=== PATIENT | female | born 1955 | race Caucasian/White ===

== ENCOUNTER 2019-02-25 18:01 | Observation (INO) | payer MEDICARE, OTHER ==
[~2019-02-25] VITALS: Ht 162.6 cm; Wt 73.5 kg
[~2019-02-25 18:01] MED LIST: ATENOLOL 100MG100 MG PO; BENAZEPRIL HCL20 MG PO; FENOFIBRATE160 MG PO; OMEPRAZOLE20 M2 PO; VICODIN ES 7.51 EACH PO; XANAX 0.25 MG0.25 MG PO
[2019-02-25 18:04] VITALS: BP 124/72
[2019-02-25 18:44] LABS: ABSOLUTE BASOPHILS 0.1 thou/uL (0.0-0.2); ABSOLUTE EOSINOPHILS 0.1 thou/uL (0.0-0.7); ABSOLUTE LYMPHOCYTES 2.5 thou/uL (0.8-5.3); ABSOLUTE MONOCYTES 0.4 thou/uL (0.0-1.2); ABSOLUTE NEUTROPHILS 3.7 thou/uL (1.6-8.1); BASOPHILS 0.9 %; EOSINOPHILS 0.9 %; HEMATOCRIT 41.8 % (37.0-47.0); HEMOGLOBIN 14.2 gm/dL (12.0-15.0); LYMPHOCYTES 37.1 %; MCH 31.9 pg (26.0-34.0); MCHC 33.9 g/dL (28.0-37.0); MCV 93.9 fL (80.0-100.0); MONOCYTES 5.4 %; MPV 10.2 fl. (7.2-11.1); NUCLEATED RBCS 0 /100WBC; PLATELET COUNT* 189 thou/uL (150-400); POLYS 55.7 %; RBC 4.45 mil/uL (4.20-5.00); RDW-CV 12.6 % (10.5-14.5); WBC 6.7 thou/uL (4.0-11.0)
[2019-02-25 18:50] LABS: URINE BILIRUBIN NEGATIVE (Negative); URINE BLOOD NEGATIVE (Negative); URINE CLARITY CLEAR; URINE COLOR YELLOW; URINE GLUCOSE-RANDOM 3+ (Negative); URINE KETONES NEGATIVE (Negative); URINE LEUKOCYTES-REFLEX NEGATIVE (Negative); URINE NITRITE-REFLEX NEGATIVE (Negative); URINE PROTEIN TRACE (Negative); URINE SPECIFIC GRAVITY <= 1.005 (1.005-1.030); URINE UROBILINOGEN 0.2 E.U./dl (0.2-1.0)
[2019-02-25 18:52] LABS: ANION GAP 11 mmol/L (7-16); BUN 11 mg/dL (7-18); CALCIUM 8.9 mg/dL (8.5-10.1); CHLORIDE 100 mmol/L (98-107); CO2 25 mmol/L (21-32); CREATININE 1.1 mg/dL (0.6-1.3); GLUCOSE 435 mg/dL (70-99); POTASSIUM 3.5 mmol/L (3.5-5.1); SODIUM 136 mmol/L (136-145)
[2019-02-25 19:01] LABS: ALBUMIN 3.9 g/dL (3.4-5.0); ALKALINE PHOSPHATASE 84 U/L (46-116); SGOT 19 U/L (15-37); SGPT 40 U/L (30-65); TOTAL BILIRUBIN 0.4 mg/dL (<0.1-1.0); TROPONIN-I LEVEL <0.06 ng/mL (<0.06)
[2019-02-25 19:03] LABS: MAGNESIUM 0.7 mg/dL (1.8-2.4)
[2019-02-25] MEDS ORDERED: FISH OIL 1,001000 M2 PO (21:47)
[2019-02-25] MEDS ORDERED: TUMS PO (21:47)
[2019-02-26 00:17] VITALS: BP 124/72
[2019-02-26 04:17] VITALS: BP 100/59
--- NOTE | 2019-02-26 07:00 | NUR ---
THIS NURSE RECEIVED REPORT FROM GIBRAN VALDEZ. THIS NURSE TO ASSUME PT CARE AT THIS TIME.
[2019-02-26 07:11] VITALS: BP 121/79
--- NOTE | 2019-02-26 16:29 | EKG ---
[place] [address] ELECTROCARDIOGRAM REPORT Name: GERBERNOELLE Andrei Room: [address] M.R.#: [id number] Admission: 02/25/19 Attend Phys: Rodrigue Fernandez Discharge: Date of : 57 Report #: [id number] THIS REPORT FOR: //name// [facility] ED Test Date: 2019-02-25 Test Time: 18:11:55 Pat Name: NOELLE MAYES Department: Room: [facility] Gender: F Director Mobile: Romy GRIJALVA : 1955 Requested By: Gera Giles Order Number: [id number] MD: Eron Mcwilliams Measurements Intervals [place] Rate: 78 P: 10 PA: 196 QRS: -14 QRSD: 100 T: 3 QT: 396 QTc: 452 Interpretive Statements Sinus rhythm Compared to ECG 09/04/2007 11:59:41 No significant changes Electronically Signed On 02-26-2019 16:28:50 CDT by Eron Mcwilliams [email or web address] <ELECTRONICALLY SIGNED> By: Eron Mcwilliams MD, [facility] 02/26/19 1628 181 181 Eron Mcwilliams MD, [facility] /EPI
--- NOTE | 2019-02-26 17:18 | NUR ---
REPORT GIVEN TO GIBRAN JOHNSON WHO IS TO ASSUME PT CARE INPATIENT NURSE.
[2019-02-26 17:19] VITALS: BP 98/60
[2019-02-26 18:00] VITALS: BP 124/98
--- NOTE | 2019-02-26 18:53 | NUR ---
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 ON RA. NO COMPLAINT. CALL LIGHT AT REACH. ACCUCHECH 293. INSULIN GIVEN WILL CONTINUE TO MONITOR PT
[2019-02-26 20:00] VITALS: BP 104/59
[2019-02-27] VITALS: BP 114/63
--- NOTE | 2019-02-27 03:28 | NUR ---
ASSUMED PT CARE AT 1930. ASSESSMENT COMPLETED CHARTED. ABLE TO MAKE NEEDS KNOWN. NO C/O PAIN OR DISCOMFORT. UP AD ASHU IN ROOM. C/O HEARTBURN AT BEGINNING OF SHIFT AND GAVE PRN TUMS. PT RESTING IN BED AT THIS TIME. NPO SINCE MIDNIGHT FOR CARDIOLOGY CONSULT. WILL CONTINUE TO MONITOR.
[2019-02-27 04:00] VITALS: BP 123/77
[2019-02-27 04:58] LABS: ABSOLUTE BASOPHILS 0.1 thou/uL (0.0-0.2); ABSOLUTE EOSINOPHILS 0.1 thou/uL (0.0-0.7); ABSOLUTE LYMPHOCYTES 3.5 thou/uL (0.8-5.3); ABSOLUTE MONOCYTES 0.5 thou/uL (0.0-1.2); ABSOLUTE NEUTROPHILS 3.2 thou/uL (1.6-8.1); BASOPHILS 0.7 %; EOSINOPHILS 1.5 %; HEMATOCRIT 38.4 % (37.0-47.0); HEMOGLOBIN 13.1 gm/dL (12.0-15.0); LYMPHOCYTES 48.2 %; MCH 31.9 pg (26.0-34.0); MCHC 34.2 g/dL (28.0-37.0); MCV 93.1 fL (80.0-100.0); MONOCYTES 6.3 %; MPV 10.3 fl. (7.2-11.1); NUCLEATED RBCS 0 /100WBC; PLATELET COUNT* 175 thou/uL (150-400); POLYS 43.3 %; RBC 4.12 mil/uL (4.20-5.00); RDW-CV 12.5 % (10.5-14.5); WBC 7.3 thou/uL (4.0-11.0)
[2019-02-27 05:10] LABS: ANION GAP 10 mmol/L (7-16); BUN 12 mg/dL (7-18); CALCIUM 9.4 mg/dL (8.5-10.1); CHLORIDE 105 mmol/L (98-107); CHOLESTEROL 205 mg/dL (<200); CO2 25 mmol/L (21-32); CREATININE 0.8 mg/dL (0.6-1.3); GLUCOSE 189 mg/dL (70-99); HDL CHOLESTEROL 35 mg/dL (>40); LDL CHOLESTEROL 129 mg/dL (<100); MAGNESIUM 1.5 mg/dL (1.8-2.4); POTASSIUM 3.9 mmol/L (3.5-5.1); SODIUM 140 mmol/L (136-145); TC:HDL 5.9 Ratio (Not establshd); TRIGLYCERIDE 208 mg/dL (<150); VLDL 42 mg/dL (<40)
[2019-02-27 05:12] LABS: SERUM ASSESSMENT Clear
[2019-02-27 08:00] VITALS: BP 126/79
[2019-02-27 10:40] VITALS: BP 126/79
[2019-02-27 11:38] VITALS: BP 125/79
[2019-02-27 12:13] VITALS: BP 126/79
[2019-02-27 13:08] LABS: GLYCOHEMOGLOBIN (HGB A1C) 12.3 % (4.8-5.6)
[2019-02-27] MEDS ORDERED: MAGOX 400400 MG PO (13:43)
[2019-02-27] MEDS ORDERED: METFORMIN HCL500 MG PO (13:45)
--- NOTE | 2019-02-27 15:12 | NUR ---
RECEIVED REPORT FROM SUNDAR LEARY. ASSUMED CARE OF PT AROUND O730. PT A&0X4, VSS. EXHAUST EMISSIONS AUTOMOTIVE TECHNICIAN IN PLACE TRACING SR/SB WITH NO CHANGES. AM ASSESSMENT AND VITALS COMPLETED CHARTED. MEDS PER EMAR. MAG REPLACED. PT SEEN BY CARDIOLOGY - EVENT MONITOR TO BE MAILED TO PTS HOME. DISCHARGE ORDERS RECEIVED. DISCHARGE COMPLETED CHARTED. IV AND EXHAUST EMISSIONS AUTOMOTIVE TECHNICIAN REMOVED. ALL BELONGINGS GATHRED AND LEFT WITH THE PT. SCRIPS GIVEN. PT AWARE OF F/U APPOINTMENTS. PT LEFT UNIT WALKING WITH NURSING STAFF. PT LEFT HOSPITAL IN CAR WITH SILVANA.
--- NOTE | 2019-02-28 16:34 | CON ---
[address] [address] CONSULTATION Name: GERBERNOELLE Forbes Room: [address] Ana Barlow#: [id number] Admission: 02/25/19 Attend Phys: Rodrigue Fernandez Discharge: 02/27/19 Date of : 57 Report #: [id number] THIS REPORT FOR: //name// CC: Manish Rodriguez DO Cirilo Cadet DATE OF SERVICE: 02/26/2019 CARDIOLOGY CONSULTATION HISTORY OF PRESENT ILLNESS: The patient is a 63-year-old single white female who I was asked to see in the hospital today after she is noted to be tachycardic. The patient states that she actually had an episode of tachycardia back in 2006. She went to the emergency room at [place] and she was noted to have a rapid heart rate. She was given medication to slow down. She has been on atenolol since that time. Recently, she has been under a lot of stress. She was doing well up until yesterday. She was at home when she felt her heart beating fast. She felt short of breath, some chest pain, lightheaded. It lasted about 15 minutes, resolved. She then noticed that started up again and she called the ambulance. She was apparently in a narrow complex tachycardia and was given adenosine. She converted to sinus rhythm. She was brought here to [place] by ambulance and admitted. She is not very active and denies any significant chest pain, shortness of breath, fever. PAST MEDICAL HISTORY: She has had cervical spine fusion, hysterectomy, appendectomy. She has hypertension, hyperlipidemia. MEDICATIONS: Atenolol, benazepril, aspirin, fenofibrate, omeprazole. ALLERGIES: She has no known drug allergies. FAMILY HISTORY: Negative for heart disease. SOCIAL HISTORY: She has been , lives in [place]. She is on disability for chronic back pain. Smokes less than half pack of cigarettes a day. No alcohol abuse. Does not drink a lot of caffeine. REVIEW OF SYSTEMS: She has had no history of stroke or asthma. She does have a hiatal hernia. No history of kidney disease, cancer, psychiatric illness, chronic skin condition. PHYSICAL EXAMINATION: GENERAL: Revealed a middle-aged female. No acute distress. VITAL SIGNS: Blood pressure is 100/68, pulse 60. She is afebrile. HEENT: She is anicteric, conjunctivae pink. [place] [address] CONSULTATION Name: NOELLE MAYES [address]#: [id number] Admission: 02/25/19 Attend Phys: Rodrigue Fernandez Discharge: 02/27/19 Date of : 57 Report #: [id number] NECK: Veins nondistended. No carotid bruits. Neck supple. CHEST: Clear to auscultation. CARDIOVASCULAR: Regular rate and rhythm without murmur. ABDOMEN: Soft. EXTREMITIES: Had no edema. Dorsalis pedis pulse 2+ bilaterally. SKIN: Warm, dry. NEUROLOGIC: Nonfocal. LYMPH: No adenopathy. MUSCULOSKELETAL: No joint effusion. LABORATORY DATA: Unfortunately, the paramedics did not bring a rhythm strip to the Emergency Room. ECG on arrival here to the Emergency Room showed a sinus rhythm, no ST or T-wave change. Her workup in the Emergency Room last night, she had a portable chest x-ray that showed normal heart size, clear lung moore. Lab work last night, sodium 136, creatinine 1.1. Her glucose was 435. Her liver function studies are normal. TSH 1.1. White blood cell count 6.7, hemoglobin 14.2. IMPRESSION AND RECOMMENDATIONS: 1. Suspected paroxysmal supraventricular tachycardia. Unfortunately, I have no rhythm strips to review. The information I have was verbal only. At this time, I would recommend switching from atenolol to sotalol. 2. Hypertension. The patient is on a beta israel and MADISON inhibitor. 3. Tobacco abuse. 4. History of a hiatal hernia. 5. Elevated blood sugar. I would rule out diabetes. 6. Hyperlipidemia. The patient is fenofibrate. <ELECTRONICALLY SIGNED> By: Eron Mcwilliams MD, FACC 02/28/19 1634 1608 [id number] Mcwilliams MD, FAC /nt
--- NOTE | 2019-03-01 13:24 | EKG ---
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
== END 2019-02-27 15:03 | disposition home or self-care (01) ==
LOC: M.ERS 18:01 → M.TBA-ER 20:17 → M.2W 02-26 17:46
PROVIDERS: Emergency Medicine Emergency Medical Services; Family Medicine; ADMIT Internal Medicine
DX: I47.1 Supraventricular tachycardia (principal); R79.89 Other specified abnormal findings of blood chemistry; I12.9 Hypertensive chronic kidney disease with stage 1 through stage 4 chronic kidney disease, or unspecified chronic kidney disease; E11.22 Type 2 diabetes mellitus with diabetic chronic kidney disease; N18.3 Chronic kidney disease, stage 3 (moderate); N17.9 Acute kidney failure, unspecified; E78.5 Hyperlipidemia, unspecified; E83.42 Hypomagnesemia; M43.22 Fusion of spine, cervical region; F17.200 Nicotine dependence, unspecified, uncomplicated; K44.9 Diaphragmatic hernia without obstruction or gangrene; I21.A1 Myocardial infarction type 2; I99.8 Other disorder of circulatory system; Z79.899 Other long term (current) drug therapy; Z90.89 Acquired absence of other organs

== ENCOUNTER 2019-03-23 11:19 | Observation (INO) | payer MEDICARE, OTHER ==
[~2019-03-23] VITALS: Ht 152.4 cm; Wt 72.9 kg
[~2019-03-23 11:19] MED LIST changes: +CALCIUM 500 +1 EAC5 PO; +FISH OIL 1,001000 M2 PO; +FLEXERIL PO; +MAGOX 400400 MG PO; +METFORMIN HCL500 MG PO
[2019-03-23 11:27] VITALS: BP 147/85
[2019-03-23 11:37] LABS: URINE BILIRUBIN NEGATIVE (Negative); URINE BLOOD TRACE (Negative); URINE CLARITY CLEAR; URINE COLOR YELLOW; URINE GLUCOSE-RANDOM NEGATIVE (Negative); URINE KETONES NEGATIVE (Negative); URINE LEUKOCYTES-REFLEX 1+ (Negative); URINE NITRITE-REFLEX NEGATIVE (Negative); URINE PROTEIN NEGATIVE (Negative)
[2019-03-23 11:50] LABS: CASTS None Seen /LPF (None Seen); MUCUS 0-3 Light strn/LPF (None Seen); SQUAMOUS 0-3 Few /LPF (0-3); URINE RBC 0-2 Rare /HPF (0-2); URINE WBC-REFLEX 6-15 Few /HPF (0-5)
[2019-03-23 11:51] LABS: CRYSTALS None Seen /LPF (None Seen)
[2019-03-23 11:53] LABS: ABSOLUTE BASOPHILS 0.1 thou/uL (0.0-0.2); ABSOLUTE EOSINOPHILS 0.1 thou/uL (0.0-0.7); ABSOLUTE LYMPHOCYTES 2.1 thou/uL (0.8-5.3); ABSOLUTE MONOCYTES 0.5 thou/uL (0.0-1.2); ABSOLUTE NEUTROPHILS 6.6 thou/uL (1.6-8.1); BASOPHILS 0.9 %; EOSINOPHILS 0.7 %; LYMPHOCYTES 22.7 %; MCH 31.8 pg (26.0-34.0); MCHC 34.2 g/dL (28.0-37.0); MCV 93.2 fL (80.0-100.0); MONOCYTES 5.2 %; MPV 9.2 fl. (7.2-11.1); NUCLEATED RBCS 0 /100WBC; PLATELET COUNT* 194 thou/uL (150-400); POLYS 70.5 %; RDW-CV 12.4 % (10.5-14.5); WBC 9.4 thou/uL (4.0-11.0)
[2019-03-23 12:00] LABS: ANION GAP 12 mmol/L (7-16); BUN 12 mg/dL (7-18); CALCIUM 10.1 mg/dL (8.5-10.1); CHLORIDE 101 mmol/L (98-107); CO2 26 mmol/L (21-32); CREATININE 0.9 mg/dL (0.6-1.3); GLUCOSE 125 mg/dL (70-99); POTASSIUM 3.6 mmol/L (3.5-5.1); SODIUM 139 mmol/L (136-145)
[2019-03-23 12:01] LABS: APTT 27.9 Seconds (25.0-31.3); PROTIME 10.7 Seconds (9.20-11.50)
[2019-03-23 12:11] LABS: ALBUMIN 4.1 g/dL (3.4-5.0); ALKALINE PHOSPHATASE 49 U/L (46-116); NT-PRO BRAIN NAT PEPTIDE 174 pg/mL (<300); SGOT 15 U/L (15-37); SGPT 26 U/L (30-65); TOTAL BILIRUBIN 0.5 mg/dL (<0.1-1.0); TOTAL PROTEIN 8.1 g/dL (6.4-8.2); TROPONIN-I LEVEL <0.06 ng/mL (<0.06)
[2019-03-23 12:18] LABS: MAGNESIUM 0.8 mg/dL (1.8-2.4)
[2019-03-23 14:40] VITALS: BP 125/74
[2019-03-23 15:05] VITALS: BP 138/74
--- NOTE | 2019-03-23 15:54 | EKG ---
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: : 1955 Requested By: Mychal Christian Order Number: [id number] MD: Christopher Macias Measurements Intervals [place] Rate: 101 P: 24 MT: 164 QRS: -36 QRSD: 98 T: 7 QT: 336 QTc: 436 Interpretive Statements Sinus tachycardia Left axis deviation Compared to ECG 02/26/2019 18:47:19 Sinus rhythm no longer present Electronically Signed On 03-23-2019 15:54:34 CDT by Christopher Macias [email or web address] <ELECTRONICALLY SIGNED> By: Christopher Macias MD, [facility] 03/23/19 1554 1132 1132 Christopher Macias MD, [facility] /EPI
[2019-03-23 16:20] LABS: AMP/METHAMP Negative (Negative); BARBITURATES Negative (Negative); BENZODIAZEPINES Negative (Negative); COCAINE Negative (Negative); METHADONE Negative (Negative); OPIATES POSITIVE (Negative); PCP Negative (Negative); THC POSITIVE (Negative)
[2019-03-23 19:50] VITALS: BP 121/79
[2019-03-24] VITALS: BP 130/76
[2019-03-24 03:50] VITALS: BP 138/69
[2019-03-24 05:19] LABS: ABSOLUTE EOSINOPHILS 0.1 thou/uL (0.0-0.7); ABSOLUTE LYMPHOCYTES 2.5 thou/uL (0.8-5.3); ABSOLUTE MONOCYTES 0.4 thou/uL (0.0-1.2); BASOPHILS 0.4 %; EOSINOPHILS 0.8 %; LYMPHOCYTES 30.7 %; MCH 32.5 pg (26.0-34.0); MCHC 34.8 g/dL (28.0-37.0); MCV 93.3 fL (80.0-100.0); MONOCYTES 5.6 %; MPV 9.8 fl. (7.2-11.1); NUCLEATED RBCS 0 /100WBC; PLATELET COUNT* 203 thou/uL (150-400); POLYS 62.5 %; RBC 3.64 mil/uL (4.20-5.00); RDW-CV 12.3 % (10.5-14.5)
[2019-03-24 05:23] LABS: HEMOGLOBIN 11.8 gm/dL (12.0-15.0)
[2019-03-24 05:44] LABS: CALCIUM 9.2 mg/dL (8.5-10.1); CREATININE 0.7 mg/dL (0.6-1.3); POTASSIUM 3.9 mmol/L (3.5-5.1)
[2019-03-24 07:53] VITALS: BP 124/63
[2019-03-24 11:11] VITALS: BP 124/63
[2019-03-24 11:20] VITALS: BP 116/69
[2019-03-24] MEDS ORDERED: CEFUROXIME500 MG PO (11:30)
== END 2019-03-24 12:05 | disposition home or self-care (01) ==
LOC: M.ERS 11:19 → M.2W 13:18 → M.TBA-ER 13:18 → M.2W 13:18
PROVIDERS: Family Medicine; ADMIT Internal Medicine
DX: E83.42 Hypomagnesemia (principal); E86.0 Dehydration; E11.9 Type 2 diabetes mellitus without complications; M19.90 Unspecified osteoarthritis, unspecified site; G89.29 Other chronic pain; I10 Essential (primary) hypertension; F17.210 Nicotine dependence, cigarettes, uncomplicated; F12.90 Cannabis use, unspecified, uncomplicated; Z90.710 Acquired absence of both cervix and uterus

== ENCOUNTER → 2019-04-12 | Outpatient (CLI) | payer MEDICARE, OTHER ==
[~2019-04-12] MED LIST changes: +CEFUROXIME500 MG PO
--- NOTE | 2019-04-12 17:39 | CARDNUC ---
[place] [address] CARDIAC NUCLEAR IMAGING REPORT Name: NOELLE JUAREZ Room: [facility]#: [id number] Admission: 04/12/19 Attend Phys: Theresa Ling Discharge: Date of : 57 Date of Service: 04/12/19 1739 Report #: [id number] THIS REPORT FOR: //name// APPROVED REPORT Study performed: 04/12/2019 07:45:00 Indication: Chest pain, Dyspnea, HX SVT's. Patient Location: Out-Patient Stress Tech: [facility] Stress Nurse: Kary Rocha RN Ht: 5 ft 1 in Wt: 144 lbs BSA: 1.64 m2 BMI: 27.20 Medical History Medical History: Angina, Arrhythmia, Current Smoker, Diabetes, Fatigue, HTN, Hyperlipidemia, SOB, Anxiety. Medications: Benazepril, MG, Atenolol, Metformin, ASA 81 Mg, Fenofibrate. Allergies: No known drug allergies Cardiac Risk Factors: Age,, Current Smoker, DM, FHX of CAD, HTN, Hyperlipidemia, SOB. Previous Cardiac Procedures: None Pretest Chest Pain Characteristics: No chest pain Exercise History: Indeterminate Physical Disabilities: Severe anxiety, fearfulness. Meds Held (24 hrs): Atenolol. Resting Data Rest SPECT myocardial perfusion imaging was performed in supine position 30 minutes following the intravenous injection of 10.0 mCi of Tc-99m Sestamibi. Time of rest injection: 08:00 The images were gated to evaluate regional wall motion and calculate left ventricular ejection fraction. Administration Route: IV Administration Site: Left AC Pharmacologic Stress Pharmacologic stress test was performed by injecting Regadenoson 0.4 mg IV push over 10-15 seconds immediately followed by the intravenous injection of 34.2 mCi of Tc-99m Sestamibi. Time of stress injection: 09:50 Administration Route: [place] [address] CARDIAC NUCLEAR IMAGING REPORT Name: GERBERNOELLEPAPO RUIZ Room: [facility]#: [id number] Admission: 04/12/19 Attend Phys: Theresa Ling Discharge: Date of : 57 Date of Service: 04/12/19 1739 Report #: [id number] Administration Site: Left AC Heart Rate at time of stress injection: 146 bpm. Gated Stress SPECT was performed 45 minutes after stress injection. The images were gated to evaluate regional wall motion and calculate left ventricular ejection fraction. Prone imaging was performed. Stress Test Details Stress Test: Pharmacologic stress testing performed using 0.4 mg of regadenoson per 5 mL given IV over 10 seconds. Reason for pharmacologic stress test: Severe Anxiety, fearfulness.. HR Max Heart Rate (APMHR): 157 bpm Resting HR: 62 bpm Target HR (85% APMHR): 133 bpm Max HR Achieved: 148 bpm % of APMHR: 94 Recovery HR: 88 bpm BP Resting BP: 123/71 mmHg Max BP: 171/101 mmHg Recovery BP: 119/85 mmHg ECG Resting ECG: Sinus Rhythm Stress ECG: Sinus Tachycardia ST Change: None Arrhythmia: None Recovery ECG: Sinus Rhythm Recovery ST Change: None Recovery Arrhythmia: None Clinical Reason for Termination: Completed protocol Stress Symptoms: Increased anxiety, weepy. Exercise duration: 00 min 00 sec Exercise capacity: 1.00 METs The patient had no significant cardiac symptoms with Lexiscan infusion.. Nurse Comments 64 year old Lizzie Juarez (formerly Nabil) female, presented with recent HX of CP and SOA with increased anxiety and episodes of SVT. Patient tolerated sitting Lexiscan with some increase anxiety and weepiness. Recovery unremarkable with PO caffeine, [place] [address] CARDIAC NUCLEAR IMAGING REPORT Name: NOELLE JUAREZ Room: [facility]#: [id number] Admission: 04/12/19 Attend Phys: Theresa Ling Discharge: Date of : 57 Date of Service: 04/12/19 5499 Report #: [id number] escorted by staff to Nuclear Medicine for images. Patient was stable with no complaints at that time. Stress ECG Conclusion The baseline 12-lead EKG shows sinus rhythm without significant ST or T wave abnormality. EKGs obtained during and post exercise showed sinus rhythm and sinus tachycardia with no significant ST or T wave changes when compared baseline. There were no stress-induced arrhythmias. Study Quality Study: Good Artifact: No artifact Study Data At rest, the left ventricular ejection fraction was 77%.. Post stress, the left ventricular ejection was 79%.. TID = 0.87. Perfusion Normal left ventricular perfusion. Wall Motion Normal left ventricular wall motion. Nuclear Conclusion ECG Findings: negative for ischemia Clinical Findings: negative for ischemia Nuclear Findings: negative for ischemia Exercise Capacity: not assessed Left Ventricular Function: normal Risk Study: low Myocardial perfusion images show no defect to suggest infarct or ischemia. Left ventricular systolic function appears normal on gated studies. This is a low risk study. <Conclusion> The baseline 12-lead EKG shows sinus rhythm without significant ST or T wave abnormality. EKGs obtained during and post exercise showed sinus rhythm and sinus tachycardia with no significant ST or T wave changes when compared baseline. There were no stress-induced arrhythmias. <ELECTRONICALLY SIGNED> By: Christopher Macias MD, [facility] 04/12/19 1739 1739 1739 Christopher Macias MD, FACC /INF
--- NOTE | 2019-04-14 11:41 | 2DMMODE ---
[place] [address] 2 D/M-MODE ECHOCARDIOGRAM Name: NOELLE MAYES Room: [facility]#: [id number] Admission: 04/12/19 Attend Phys: Theresa Ling Discharge: Date of : 57 Date of Service: 04/13/19 1639 Report #: [id number] THIS REPORT FOR: //name// APPROVED REPORT Study performed: 04/12/2019 09:55:52 EXAM: Comprehensive 2D, Doppler, and color-flow Echocardiogram Patient Location: Out-Patient BSA: 1.64 HR: 62 bpm BP: 123/71 mmHg Other Information Study Quality: Good Indications SVT 2D Dimensions IVSd: 10.50 (7-11mm) LVOT Diam: 19.98 (18-24mm) LVDd: 43.78 mm PWd: 10.02 (7-11mm) Ascending Ao: 30.90 (22-36mm) LVDs: 21.07 (25-40mm) Aortic Root: 30.93 mm Volumes Left Atrial Volume (Systole) LA ESV Index: 15.90 mL/m2 Aortic Valve AoV Peak Vladimir.: 1.47 m/s AO Peak Gr.: 8.68 mmHg LVOT Max P.45 mmHg AO Mean Gr.: 4.30 mmHg LVOT Mean P.56 mmHg LVOT Max V: 1.17 m/s AO V2 VTI: 26.59 cm LVOT Mean V: 0.73 m/s FAVIOLA (VTI): 2.78 cm2 LVOT V1 VTI: 23.53 cm Mitral Valve E/A Ratio: 0.75 MV Decel. Time: 285.93 ms MV E Max Vladimir.: 0.49 m/s MV PHT: 82.92 ms MVA (PHT): 2.65 [place] [address] 2 D/M-MODE ECHOCARDIOGRAM Name: GERBERNOELLE SARA Room: [facility]#: [id number] Admission: 04/12/19 Attend Phys: Theresa Ling Discharge: Date of : 57 Date of Service: 04/13/19 1639 Report #: [id number] TDI E/Lateral E': 6.13 E/Medial E': 6.13 Medial E' Vladimir.: 0.08 m/s Lateral E' Vladimir.: 0.08 m/s Pulmonary Valve PV Peak Vladimir.: 0.83 m/s PV Peak Gr.: 2.74 mmHg Tricuspid Valve RAP Estimate: 5.00 mmHg TR Peak Gr.: 21.27 mmHg RVSP: 26.27 mmHg PA Pressure: 26.27 mmHg Left Ventricle The left ventricle is normal size. There is normal LV segmental wall motion. There is normal left ventricular wall thickness. Left ventricular systolic function is normal. LVEF is 65-70%. Grade I - abnormal relaxation pattern. Right Ventricle The right ventricle is normal size. The right ventricular systolic function is normal. Atria The left atrium size is normal. The right atrium size is normal. Aortic Valve Aortic valve is mildly calcified. Trace aortic regurgitation. There is no aortic valvular stenosis. Mitral Valve The mitral valve is normal in structure. Trace mitral regurgitation. No evidence of mitral valve stenosis. Tricuspid Valve The tricuspid valve is normal in structure. Mild tricuspid regurgitation. estimated pa pressure 30 mm Hg Pulmonic Valve The pulmonary valve is normal in structure. There is no pulmonic valvular regurgitation. Great Vessels The aortic root is normal in size. IVC [place] [address] 2 D/M-MODE ECHOCARDIOGRAM Name: NOELLE MAYES Room: [facility]#: [id number] Admission: 04/12/19 Attend Phys: Theresa Ling Discharge: Date of : 57 Date of Service: 04/13/19 1639 Report #: [id number] collapses >50% with inspiration. Pericardium There is no pericardial effusion. <Conclusion> The left ventricle is normal size. There is normal left ventricular wall thickness. Left ventricular systolic function is normal. LVEF is 65-70%. Grade I - abnormal relaxation pattern. There is normal LV segmental wall motion. Trace aortic regurgitation. Trace mitral regurgitation. Mild tricuspid regurgitation. estimated pa pressure 30 mm Hg IVC is normal in size and collapses >50% with inspiration. <ELECTRONICALLY SIGNED> By: Christopher Macias MD, FACC 04/13/19 1639 1639 1639 Christopher Macias MD, FACC /INF
== END ==
LOC: M.CRD 03-12 08:12 → M.NUC 03-30 08:00 → M.CRD 03-30 11:00 → M.NUC 07:45
DX: I08.2 Rheumatic disorders of both aortic and tricuspid valves (principal); I10 Essential (primary) hypertension; E78.5 Hyperlipidemia, unspecified; E11.9 Type 2 diabetes mellitus without complications; F17.200 Nicotine dependence, unspecified, uncomplicated

== ENCOUNTER → 2019-04-16 | Outpatient (CLI) | payer MEDICARE, OTHER | LOC: M.ULTRA 11:30 | DX: E83.42 Hypomagnesemia (principal); I10 Essential (primary) hypertension ==

== ENCOUNTER → 2019-05-06 | Outpatient (CLI) | payer MEDICARE, OTHER | LOC: M.LAB 10:30 → M.MRI 11:30 | PROVIDERS: Orthopaedic Surgery | DX: M76.9 Unspecified enthesopathy, lower limb, excluding foot (principal); C76.51 Malignant neoplasm of right lower limb; M25.462 Effusion, left knee; M25.461 Effusion, right knee ==

== ENCOUNTER → 2020-11-16 | Outpatient (CLI) | payer MEDICARE, OTHER | LOC: M.MRI 11:30 | PROVIDERS: ATTEND Student in an Organized Health Care Education/Training Program | DX: S43.401A Unspecified sprain of right shoulder joint, initial encounter (principal); M75.121 Complete rotator cuff tear or rupture of right shoulder, not specified as traumatic; M19.011 Primary osteoarthritis, right shoulder; X58.XXXA Exposure to other specified factors, initial encounter; Y93.89 Activity, other specified; Y92.89 Other specified places as the place of occurrence of the external cause; Y99.8 Other external cause status ==